=== PATIENT | female | born 1935 | race Caucasian/White ===

== ENCOUNTER 2018-01-12 13:19 | Outpatient (CLI) | payer MEDICARE ==
--- NOTE | 2018-01-12 18:11 | HP ---
DATE OF ADMISSION: 01/12/2018 HISTORY OF PRESENT ILLNESS: Ms. Shea Hargrove is a very pleasant 82-year-old who presents to [facility] for evaluation of a venous ulceration of the left ankle in the region of the lateral m alleolus. The patient was referred to the Wound Center by Dr. Farmer. The patient states ernie t the venous ulceration has been present since the end of June of this year. She states that the ulceration "scabs" intermittently. She states that the scab always comes off on its own. She does r eport purulent appearing drainage associated with the venous ulcer on more than one occasion. PAST MEDICAL HISTORY: 1. Hypertension. 2. Atrial fibrillation. 3. Peripheral vascular disease. 4. History of congestive heart failure. 5. Glaucoma. 6. Hypothyroidism. PAST SURGICAL HISTORY: 1. Pacemaker placement. 2. Left hip replacement x3. 3. Right hip replacement x1. 4. Left femur surgery. MEDICATIONS: 1. Eliquis. 2. Furosemide. 3. Potassium. 4. Valsartan. 5. Coreg. 6. Levothyroxine. 7. Calcium. 8. Multivitamin. 9. Lumigan. 10. Timolol. ALLERGIES: NEOSPORIN. SOCIAL HISTORY: Negative for tobacco use. The patient admits to the consumption of one glass of win e per day for the past 4 years. FAMILY HISTORY: Noncontributory. REVIEW OF SYSTEMS: The patient states that intermittently she applies mupirocin ointment to the veno us ulceration of her left ankle in the region of the lateral malleolus. PHYSICAL EXAMINATION: VITAL SIGNS: Temperature 97.7, pulse 94, respirations 21, blood pressure 147/71. GENERAL: An 82-year-old female sitting on table in examination room in no acute distress. HEENT: Normocephalic, atraumatic. NECK: No nuchal rigidity. CHEST: Clear to auscultation. CARDIOVASCULAR: Irregular. ABDOMEN: Soft. EXTREMITIES: A venous ulceration of the left ankle in the region of the lateral malleolus is present . The ulceration is associated with eschar, which completely covers the ulceration. No serous or pu rulent drainage is associated with the ulceration. No cellulitis of the left ankle is appreciated. Erythema of a portion of the skin of the left ankle is present and appears to be secondary to stasis changes as opposed to an infectious process. No maceration of the skin of the periwound is noted. E jose of the right and left lower extremities is present on exam today. Discoloration of the skin of the left foot and lower leg is present secondary to hemosiderin deposition. ASSESSMENT AND PLAN: 1. Chronic venous hypertension with ulcer and inflammation. The patient states that she has been un able to tolerate compression garments in the past. I have explained to the patient that a pneumatic pump acquired for in-home lymphedema therapy may facilitate more consistent use of compression garmen ts. The patient declines treatment with a pneumatic pump at the present time. She has been given in formation to take home regarding the pneumatic pump and in-home lymphedema therapy should she change her mind. The patient has been told that arrangements for in-home lymphedema therapy may be initiate d at any time. 2. Hypertension. 3. Atrial fibrillation. 4. Peripheral vascular disease. 5. History of congestive heart failure. 6. Glaucoma. 7. Hypothyroidism.
== END 2018-01-12 13:20 | disposition home or self-care (01) ==
LOC: WCC 13:19
PROVIDERS: ATTEND Family Medicine
DX: I87.332 Chronic venous hypertension (idiopathic) with ulcer and inflammation of left lower extremity (principal); L97.329 Non-pressure chronic ulcer of left ankle with unspecified severity; I11.0 Hypertensive heart disease with heart failure; I50.9 Heart failure, unspecified; I48.91 Unspecified atrial fibrillation; I73.9 Peripheral vascular disease, unspecified; E03.9 Hypothyroidism, unspecified; H40.9 Unspecified glaucoma
CPT/HCPCS: 29581; 97139; G0463; 99203

== ENCOUNTER 2018-06-13 11:02 | Outpatient (CLI) | payer MEDICARE ==
[~2018-06-13 11:02] MED LIST: Sodium Chloride 0.9% 15 ML NEB ONE
--- NOTE | 2018-06-14 09:12 | PRG ---
DATE OF SERVICE: 06/13/2018 HISTORY: Ms. Shea Hargrove is a very pleasant 83-year-old who presents to the [facility] for evaluation of a venous ulceration of the left ankle in the region of the lateral malleolus. The patient was referred to the Wound Center by Dr. Farmer. The patient previously stated that the venous ulceration had been present since the end of June of this year. She stated that the ulceration "scabs" intermittently. She stated that the scab always comes off on its own. She also reported purulent-appearing drainage associated with a venous ulcer on more than one occasion. The patient was last seen in the Wound Center on 01/12/2018. PHYSICAL EXAMINATION: VITAL SIGNS: Pulse 78, respirations 18, blood pressure 141/60. EXTREMITIES: A venous ulceration of the left ankle in the region of the lateral malleolus is present. The dimensions of the wound are approximately 1.5 x 1.5 cm. Granulation tissue was present within the wound margins. Nonviable tissue present within the wound margins was debrided with an excisional full-thickness debridement. No purulent drainage is associated with the wound. No cellulitis of the left ankle is appreciated. Maceration of the skin of the periwound is noted. A pedal pulse is palpable on the left. Edema of the left foot and lower leg is present on exam today. ASSESSMENT AND PLAN: 1. Chronic venous hypertension with ulcer and inflammation. Silverlon, Webril, and 3M Coban 2 Layer Compression System will be applied to the ulceration today. Orders will be transmitted to Home Health for dressing changes 1 to 2 times per week after cleansing and irrigation. No antibiotics will be prescribed today based upon the appearance of the wound. The patient states she has an appointment with Cardiology in the near future. She states she will discuss evaluation for venous ablation with her guest experience captain. I will see Ms. Hargrove after she has been seen by Cardiology. 2. Hypertension. 3. Atrial fibrillation. 4. Peripheral vascular disease. 5. History of congestive heart failure. Job ID: [id number]
== END 2018-06-13 11:03 | disposition home or self-care (01) ==
LOC: WCC 11:02
PROVIDERS: ATTEND Family Medicine
DX: I87.332 Chronic venous hypertension (idiopathic) with ulcer and inflammation of left lower extremity (principal); L97.329 Non-pressure chronic ulcer of left ankle with unspecified severity; I10 Essential (primary) hypertension; I48.91 Unspecified atrial fibrillation; I73.9 Peripheral vascular disease, unspecified; Z86.79 Personal history of other diseases of the circulatory system
CPT/HCPCS: A4218

== ENCOUNTER 2020-05-27 10:56 | Outpatient (CLI) | payer MEDICARE ==
[~2020-05-27 10:56] MED LIST changes: +Iopamidol-370 76% 500 ML 1 ML ONE; -Sodium Chloride 0.9% 15 ML NEB ONE
--- NOTE | 2020-05-27 13:39 | CT ---
CT CHEST WITH IV CONTRAST: Date: 05/27/2020 PROVIDED CLINICAL HISTORY: Lymphadenopathy. FINDINGS: Comparison with 11/23/2019. The heart remains enlarged, primarily on the basis of right and left atrial enlargement. Cardiac paci ng device is redemonstrated. Atherosclerotic vascular calcification is demonstrated. Large right and small left pleural effusions are seen, similar to prior. There is subsegmental atelec tasis involving the right middle lobe, also similar to prior. The lungs are free of significant opaci ty. The airway appears patent and of normal caliber. There is no evidence for thoracic lymph node enlargement. The visualized portions of the upper abdomen demonstrate splenomegaly. The osseous structures demonstrate no concerning lytic or blastic lesions. IMPRESSION: 1. No evidence for thoracic lymph node enlargement. 2. Cardiomegaly and bilateral pleural effusions, similar to prior. 3. Splenomegaly. POS: ANDRA
== END 2020-05-27 10:57 | disposition home or self-care (01) ==
LOC: BICCT 10:56
PROVIDERS: ATTEND Internal Medicine
DX: R59.0 Localized enlarged lymph nodes (principal); I51.7 Cardiomegaly; J90 Pleural effusion, not elsewhere classified; R16.1 Splenomegaly, not elsewhere classified
CPT/HCPCS: 71260; 82565; Q9967